=== PATIENT | female | born 1970 | race African-American/Black ===

== ENCOUNTER 2016-05-16 14:32 | Emergency (ER) | payer BC ==
[2016-05-16] MEDS ORDERED: ACETAMINOPHEN 325 MG TABLET PO ONE (14:40)
[2016-05-16] MEDS ORDERED: ONDANSETRON 4 MG TAB.RAPDIS PO ONE (14:40)
--- NOTE | 2016-05-16 14:40 | ER Document Report ---
ED Medical Screen (RME) - General Stated Complaint: VOMITING,FEVER Time seen by provider: 14:38 Mode of Arrival: Ambulatory Information source: Patient Notes: 45-year-old female presents to ED for vomiting and fever with some pressure when she urinates. States sometimes she has frequency with urination. She states she came in about a month ago with the same symptoms and had a UTI. Last menstrual period 04/25/2016 I have greeted and performed a rapid initial assessment of this patient. A comprehensive ED assessment and evaluation of the patient, analysis of test results and completion of medical decision making process will be conducted by an additional ED providers. TRAVEL OUTSIDE OF THE [place] IN LAST 30 DAYS: No - Related Data Allergies/Adverse Reactions: Sulfa (Sulfonamide Antibiotics) Allergy (Verified 03/24/16 09:58) apples Allergy (Severe, Uncoded 03/24/16 09:58) Anaphylaxis Past Medical History Endocrine Medical History: Reports: Hx Diabetes Mellitus Type 2 GI Medical History: Reports: Hx Ulcer Past Surgical History: Reports: Hx Section - Immunizations Hx Diphtheria, Pertussis, Tetanus Vaccination: No
[2016-05-16 15:22] LABS: ABSOLUTE LYMPHOCYTES (AUTO) 0.9 10^3/uL (0.5-4.7); ABSOLUTE MONOCYTES (AUTO) 0.3 10^3/uL (0.1-1.4); BASOPHILS % (AUTO) 0.1 % (0-2); HEMATOCRIT 41.1 % (36.0-47.0); HEMOGLOBIN 13.1 g/dL (12.0-15.5); HGB HCT DIFFERENCE -1.8; LYMPHOCYTES % (AUTO) 16.7 % (13-45); MEAN CORPUSCULAR HEMOGLOBIN 28.3 pg (27.0-33.4); MEAN CORPUSCULAR HGB CONC 31.9 g/dL (32.0-36.0); MEAN CORPUSCULAR VOLUME 89 fl (80-97); MONOCYTES % (AUTO) 5.6 % (3-13); RED BLOOD COUNT 4.63 10^6/uL (3.72-5.28); RED CELL DISTRIBUTION WIDTH 14.1 % (11.5-14.0); SEGMENTED NEUTROPHILS % (AUTO) 77.6 % (42-78); WHITE BLOOD COUNT 5.1 10^3/uL (4.0-10.5)
[2016-05-16] MEDS ORDERED: NORMAL SALINE 1000 ML 1,000 ML IV ONE ×3 (15:35→19:57)
[2016-05-16 15:51] LABS: APPEARANCE,URINE CLEAR; BILIRUBIN,URINE NEGATIVE (NEGATIVE); GLUCOSE, URINE >=500 mg/dL (NEGATIVE); KETONES,URINE 80 mg/dL (NEGATIVE); LEUKOCYTE ESTERASE,URINE NEGATIVE (NEGATIVE); NITRITE,URINE NEGATIVE (NEGATIVE); PROTEIN,URINE 100 mg/dL (NEGATIVE); URINE SPECIFIC GRAVITY 1.026; UROBILINOGEN,URINE NEGATIVE mg/dL (<2.0)
[2016-05-16 16:04] LABS: ALANINE AMINOTRANSFERASE 24 U/L (9-52); ALKALINE PHOSPHATASE 65 U/L (38-126); ASPARTATE AMINO TRANSFERASE 15 U/L (14-36); BILIRUBIN,TOTAL 1.1 mg/dL (0.2-1.3); BLOOD UREA NITROGEN 20 mg/dL (7-20); CALCIUM 10.7 mg/dL (8.4-10.2); CARBON DIOXIDE 16 mmol/L (22-30); CHLORIDE 103 mmol/L (98-107); CREATININE RESULT 0.72 mg/dL (0.52-1.25); GLUCOSE 139 mg/dL (75-110); LIPASE 38.6 U/L (23-300)
[2016-05-16 16:14] LABS: POTASSIUM 4.6 mmol/L (3.6-5.0); SODIUM 143.3 mmol/L (137-145)
[2016-05-16 16:15] LABS: ANION GAP 24 (5-19)
--- NOTE | 2016-05-16 16:44 | ER Document Report ---
ED General - General Mode of Arrival: Ambulatory Information source: Patient TRAVEL OUTSIDE OF THE [place] IN LAST 30 DAYS: No - HPI Onset: Yesterday Onset/Duration: Sudden Quality of pain: No pain Associated symptoms: Chills, Fever, Nausea, Vomiting, Weakness. denies: Chest pain, Diarrhea, Shortness of breath Exacerbated by: Denies Relieved by: Denies Similar symptoms previously: No Recently seen / treated by doctor: No <RENZO YATES - Last Filed: 05/16/16 19:57> <HEIDY GARCIA - Last Filed: 05/18/16 06:16> - General Chief Complaint: Fever Stated Complaint: VOMITING,FEVER - HPI Notes: Patient states she did not take her metformin today. (RENZO YATES) - Related Data Allergies/Adverse Reactions: Sulfa (Sulfonamide Antibiotics) Allergy (Verified 05/18/16 04:59) sulfamethoxazole [From Septra] Allergy (Verified 05/18/16 05:00) trimethoprim [From Septra] Allergy (Verified 05/18/16 05:00) Past Medical History - General Information source: Patient - Social History Smoking Status: Unknown if Ever Smoked Chew tobacco use (# tins/day): No Frequency of alcohol use: None Drug Abuse: None Lives with: Family Family History: Reviewed & Not Pertinent Patient has suicidal ideation: No Patient has homicidal ideation: No - Past Medical History Cardiac Medical History: Reports: None Pulmonary Medical History: Reports: None EENT Medical History: Reports: None Neurological Medical History: Reports: None Endocrine Medical History: Reports: Hx Diabetes Mellitus Type 2 Renal/ Medical History: Reports: None. Denies: Hx Peritoneal Dialysis Malignancy Medical History: Reports: None GI Medical History: Reports: Hx Ulcer Musculoskeltal Medical History: Reports None Psychiatric Medical History: Reports: None Past Surgical History: Reports: Hx Section - Immunizations Hx Diphtheria, Pertussis, Tetanus Vaccination: No <RENZO YATES - Last Filed: 05/16/16 19:57> Review of Systems - Review of Systems Constitutional: See HPI EENT: No symptoms reported Cardiovascular: No symptoms reported Respiratory: No symptoms reported Gastrointestinal: See HPI Genitourinary: See HPI, Urgency Female Genitourinary: No symptoms reported Musculoskeletal: No symptoms reported Skin: No symptoms reported Neurological/Psychological: No symptoms reported <RENZO YATES - Last Filed: 05/16/16 19:57> Physical Exam - Vital signs Interpretation: Tachycardic. No: Hypotensive, Tachypneic - General General appearance: Appears well, Alert In distress: None - HEENT Head: Normocephalic Eyes: Normal Conjunctiva: Normal Ears: Normal Nasal: Normal Mouth/Lips: Normal Mucous membranes: Dry Pharynx: Normal Neck: Normal, Supple - Respiratory Respiratory status: No respiratory distress Breath sounds: Normal - Cardiovascular Rhythm: Regular, Tachycardia Heart sounds: Normal auscultation Murmur: No - Abdominal Inspection: Normal Distension: No distension Bowel sounds: Hypoactive - Back Back: Normal - Extremities General upper extremity: Normal inspection General lower extremity: Normal inspection - Neurological Neuro grossly intact: Yes Cognition: Normal Orientation: AAOx4 - Psychological Associated symptoms: Normal affect, Normal mood - Skin Skin Temperature: Warm Skin Moisture: Dry Skin Color: Normal Skin Turgor: Elastic <CARLOTAROSINARENZO - Last Filed: 05/16/16 19:57> Course - Laboratory Result Diagrams: 05/16/16 14:58 05/16/16 14:58 <RENZO YATES - Last Filed: 05/16/16 19:57> - Laboratory Result Diagrams: 05/16/16 14:58 05/16/16 20:00 <HEIDY GARCIA - Last Filed: 05/18/16 06:16> - Re-evaluation Re-evalutation: 05/16/16 18:17 Patient reports she is feeling some better, has had some recurrent nausea, continues to be thirsty. Results of laboratory testing discussed. 05/16/16 19:58 Patient states she feels better but still having generalized weakness. Denies any pain. Denies nausea at present time. Still tachycardic, although somewhat improved. Will give a third liter of intravenous fluid and repeat labs. (RENZO YATES) - Vital Signs Vital signs: Temp Pulse Resp BP Pulse Ox 98.9 F 123 H 18 150/90 H 98 05/16/16 23:02 05/16/16 14:36 05/16/16 23:01 05/16/16 23:00 05/16/16 23:01 (RENZO YATES) (HEIDY GARCIA) - Laboratory Laboratory results interpreted by me: 05/16/16 05/16/16 05/16/16 14:58 14:58 14:58 MCHC 31.9 L RDW 14.1 H Chloride Carbon Dioxide 16 L Anion Gap 24 H Glucose 139 H Calcium 10.7 H Total Protein 9.0 H Urine Protein 100 H Urine Glucose (UA) >=500 H Urine Ketones 80 H 05/16/16 20:00 MCHC RDW Chloride 110 H Carbon Dioxide 15 L Anion Gap Glucose Calcium Total Protein Urine Protein Urine Glucose (UA) Urine Ketones (RENZO YATES) (HEIDY GARCIA) Discharge <RENZO YATES - Last Filed: 05/16/16 19:57> <HEIDY GARCIA - Last Filed: 05/18/16 06:16> - Discharge Clinical Impression: Dehydration Vomiting Qualifiers: Vomiting type: unspecified Vomiting Intractability: non-intractable Nausea presence: with nausea Qualified Code(s): R11.2 - Nausea with vomiting, unspecified Hyperglycemia due to type 2 diabetes mellitus Qualifiers: Diabetes mellitus halfway insulin use: without halfway use Qualified Code(s ): E11.65 - Type 2 diabetes mellitus with hyperglycemia Condition: Stable Disposition: HOME, SELF-CARE Instructions: Antinausea Medication ([facility]), Vomiting ([facility]), Viral Syndrome ([facility]) , Dehydration ([facility]), Intravenous (IV) Fluids ([facility]) Additional Instructions: CONTINUE YOUR USUAL MEDICATIONS. YOU MAY TAKE ZOFRAN FOR NAUSEA CONTROL IF NEEDED. CLEAR LIQUID DIET UNTIL APPETITE RETURNS, THEN GRADUALLY ADVANCE DIET. RETURN IF YOU GET WORSE, ANY TIME. Prescriptions: Ondansetron [Zofran Odt 4 mg Tablet] 1 - 2 tab PO Q4H #10 tab.[email or web address]
[2016-05-16] MEDS ORDERED: ONDANSETRON HCL INJ/PF 4 MG/2 ML SDV IV ONE (18:16)
[2016-05-16] MEDS ORDERED: FAMOTIDINE INJ/PF 20 MG/2 ML SDV IV ONE (18:17)
[2016-05-16 20:33] LABS: ANION GAP 17 (5-19); BLOOD UREA NITROGEN 19 mg/dL (7-20); CALCIUM 9.4 mg/dL (8.4-10.2); CARBON DIOXIDE 15 mmol/L (22-30); CHLORIDE 110 mmol/L (98-107); CREATININE RESULT 0.57 mg/dL (0.52-1.25); GLUCOSE 107 mg/dL (75-110); POTASSIUM 4.3 mmol/L (3.6-5.0)
[2016-05-16] MEDS ORDERED: PROMETHAZINE HCL INJ 25 MG/1 ML VIAL IV ONE (20:41)
[2016-05-16 23:02] VITALS: BP 150/90
== END 2016-05-16 23:10 | disposition home or self-care (01) ==
LOC: ER 14:32
DX: E86.0 Dehydration (principal); R11.2 Nausea with vomiting, unspecified; E11.65 Type 2 diabetes mellitus with hyperglycemia; R50.9 Fever, unspecified; R53.1 Weakness; R00.0 Tachycardia, unspecified; Z79.84 Long term (current) use of oral hypoglycemic drugs; Z88.2 Allergy status to sulfonamides; Z88.3 Allergy status to other anti-infective agents
CPT/HCPCS: 99284; 96361; 96374; 96375; 36415; 83690; 84443; 84703; 85025; 80048; 80053; 81001; 83605; S0119; J2550; J2405; J7030; S0028

== ENCOUNTER 2016-05-18 04:51 | Emergency (ER) | payer BC ==
[2016-05-18] MEDS ORDERED: FAMOTIDINE INJ/PF 20 MG/2 ML SDV IV ONE (05:35)
[2016-05-18] MEDS ORDERED: NORMAL SALINE 1000 ML 1,000 ML IV PRN (05:35)
[2016-05-18] MEDS ORDERED: ONDANSETRON HCL INJ/PF 4 MG/2 ML SDV IV ONE (05:35)
[2016-05-18] MEDS ORDERED: METOCLOPRAMIDE HCL INJ/PF 10 MG/2 ML SDV IV ONE ×2 (05:37→10:17)
--- NOTE | 2016-05-18 05:37 | ER Document Report ---
ED Medical Screen (RME) - General Chief Complaint: Nausea/Vomiting Stated Complaint: SHORT OF BREATH,ABDOMINAL PAIN Time seen by provider: 05:36 Mode of Arrival: Ambulatory Information source: Patient TRAVEL OUTSIDE OF THE [place] IN LAST 30 DAYS: No - HPI Patient complains to provider of: nausea and vomiting, shortness of breath, epigastric abdominal pain Onset: Other - Onset/Duration: Persistent Quality of pain: Achy, Cramping Severity: Mild Pain Level: 2 Associated Symptoms: Cough (nonproductive), Nausea, Shortness of breath, Vomiting Similar symptoms previously: Yes Recently seen / treated by doctor: Yes Notes: 05/18/16 05:36 Patient is a 45-year-old female who is a diabetic, presents to the emergency room for the second time in 4 days complaining of nausea, vomiting and epigastric abdominal pain, today she is also having some nonproductive cough with shortness of breath, has been using Zofran at home which is not helping her symptoms at all - Related Data Allergies/Adverse Reactions: Sulfa (Sulfonamide Antibiotics) Allergy (Verified 05/18/16 04:59) sulfamethoxazole [From Septra] Allergy (Verified 05/18/16 05:00) trimethoprim [From Septra] Allergy (Verified 05/18/16 05:00) Past Medical History Endocrine Medical History: Reports: Hx Diabetes Mellitus Type 2 Renal/ Medical History: Denies: Hx Peritoneal Dialysis GI Medical History: Reports: Hx Ulcer Past Surgical History: Reports: Hx Section - Immunizations Hx Diphtheria, Pertussis, Tetanus Vaccination: No
[2016-05-18 06:02] LABS: ABSOLUTE LYMPHOCYTES (AUTO) 1.3 10^3/uL (0.5-4.7); ABSOLUTE MONOCYTES (AUTO) 0.4 10^3/uL (0.1-1.4); ABSOLUTE NEUT (AUTO) 3.5 10^3/uL (1.7-8.2); BASOPHILS % (AUTO) 0.9 % (0-2); HEMATOCRIT 39.6 % (36.0-47.0); HEMOGLOBIN 12.7 g/dL (12.0-15.5); HGB HCT DIFFERENCE -1.5; LYMPHOCYTES % (AUTO) 24.4 % (13-45); MEAN CORPUSCULAR HEMOGLOBIN 28.2 pg (27.0-33.4); MEAN CORPUSCULAR HGB CONC 32.1 g/dL (32.0-36.0); MEAN CORPUSCULAR VOLUME 88 fl (80-97); MONOCYTES % (AUTO) 7.9 % (3-13); RED BLOOD COUNT 4.51 10^6/uL (3.72-5.28); RED CELL DISTRIBUTION WIDTH 13.8 % (11.5-14.0); SEGMENTED NEUTROPHILS % (AUTO) 66.8 % (42-78); WHITE BLOOD COUNT 5.2 10^3/uL (4.0-10.5)
[2016-05-18 06:07] LABS: ALANINE AMINOTRANSFERASE 23 U/L (9-52); ALBUMIN 4.6 g/dL (3.5-5.0); ALKALINE PHOSPHATASE 59 U/L (38-126); ANION GAP 14 (5-19); ASPARTATE AMINO TRANSFERASE 33 U/L (14-36); BILIRUBIN,TOTAL 1.5 mg/dL (0.2-1.3); BLOOD UREA NITROGEN 16 mg/dL (7-20); CALCIUM 9.4 mg/dL (8.4-10.2); CARBON DIOXIDE 21 mmol/L (22-30); CHLORIDE 106 mmol/L (98-107); CREATININE RESULT 0.55 mg/dL (0.52-1.25); GLUCOSE 87 mg/dL (75-110); LIPASE 58.2 U/L (23-300); POTASSIUM 3.8 mmol/L (3.6-5.0); SODIUM 141.3 mmol/L (137-145)
[2016-05-18 06:21] LABS: AMORPHOUS SEDIMENT,URINE TRACE /HPF; APPEARANCE,URINE CLEAR; BILIRUBIN,URINE NEGATIVE (NEGATIVE); GLUCOSE, URINE >=500 mg/dL (NEGATIVE); KETONES,URINE 80 mg/dL (NEGATIVE); LEUKOCYTE ESTERASE,URINE NEGATIVE (NEGATIVE); NITRITE,URINE NEGATIVE (NEGATIVE); PROTEIN,URINE 30 mg/dL (NEGATIVE); URINE SPECIFIC GRAVITY 1.027; UROBILINOGEN,URINE NEGATIVE mg/dL (<2.0)
[2016-05-18] MEDS ORDERED: DEXTROSE 5%-LACTATED RINGERS 1,000 ML IV ONE ×2 (06:39→10:17)
[2016-05-18] MEDS ORDERED: MAG HYDROX/AL HYDROX/SIMETH SUSP 30 ML UDCUP PO ONE ×2 (06:40→10:17)
[2016-05-18] MEDS ORDERED: LIDOCAINE 2% VISCOUS SOLN 20 ML UDCUP PO ONE ×2 (06:40→10:17)
--- NOTE | 2016-05-18 07:12 | ER Document Report ---
ED GI/ - General Time seen by provider: 06:30 Mode of Arrival: Ambulatory Information source: Patient TRAVEL OUTSIDE OF THE [place] IN LAST 30 DAYS: No - HPI Patient complains to provider of: Abdominal pain, Vomiting Onset: Other - see HPI Timing/Duration: Persistent Quality of pain: Cramping Pain Level: 3 Location: Epigastric. No: RUQ Associated symptoms: Nausea, Vomiting Similar symptoms previously: Yes Recently seen / treated by doctor: Yes - ED on 05/16 <MY ROBLES - Last Filed: 05/18/16 07:21> <HEIDY GRACIA - Last Filed: 05/18/16 14:40> - General Chief Complaint: Nausea/Vomiting Stated Complaint: SHORT OF BREATH,ABDOMINAL PAIN Notes: Patient is a 45-year-old female with a history of type II diabetes mellitus presents the emergency department with complaints of nausea, vomiting, and some shortness of breath. Patient was seen in the emergency department on 05/16 for nausea and vomiting and some epigastric pain. Patient was given 3 L of fluids and sent home with Zofran. Patient states she has been taking Zofran without much relief. Patient states she now is having some shortness of breath with her nausea and vomiting as well as a slight nonproductive cough. Patient denies any fever. Patient's PCP is [facility]. (MY ROBLES) - Related Data Allergies/Adverse Reactions: Sulfa (Sulfonamide Antibiotics) Allergy (Verified 05/18/16 04:59) sulfamethoxazole [From Septra] Allergy (Verified 05/18/16 05:00) trimethoprim [From Decra] Allergy (Verified 05/18/16 05:00) Home Medications: Current Home Medications Canagliflozin [Invokana] 1 tab PO DAILY 05/18/16 [History] Lisinopril [Prinivil 5 mg Tablet] 5 mg PO DAILY 05/18/16 [History] Metformin HCl [Glucophage 500 mg Tablet] 1,000 mg PO BID 05/18/16 [History] Past Medical History - General Information source: Patient - Social History Smoking Status: Never Smoker Cigarette use (# per day): No Chew tobacco use (# tins/day): No Frequency of alcohol use: None Drug Abuse: None Family History: None Endocrine Medical History: Reports: Hx Diabetes Mellitus Type 2 GI Medical History: Reports: Hx Ulcer Past Surgical History: Reports: Hx Section - Immunizations Hx Diphtheria, Pertussis, Tetanus Vaccination: No <MY ROBLES - Last Filed: 05/18/16 07:21> Review of Systems - Review of Systems Constitutional: No symptoms reported EENT: No symptoms reported Cardiovascular: No symptoms reported Respiratory: No symptoms reported Gastrointestinal: See HPI, Abdominal pain, Nausea, Vomiting Genitourinary: No symptoms reported Female Genitourinary: No symptoms reported Musculoskeletal: No symptoms reported Skin: No symptoms reported Hematologic/Lymphatic: No symptoms reported Neurological/Psychological: No symptoms reported -: Yes All other systems reviewed and negative <MY ROBLES - Last Filed: 05/18/16 07:21> Physical Exam - Vital signs Interpretation: Normal, Tachycardic - General General appearance: Appears well, Alert In distress: Mild - HEENT Head: Normocephalic, Atraumatic Eyes: Normal Pupils: PERRL Mouth/Lips: Other - strong keytone odor on breath Mucous membranes: Normal - Respiratory Respiratory status: No respiratory distress Chest status: Nontender Breath sounds: Normal Chest palpation: Normal - Cardiovascular Rhythm: Regular, Tachycardia Heart sounds: Normal auscultation Murmur: No - Abdominal Inspection: Obese Distension: No distension Bowel sounds: Normal Tenderness: Tender - Epigastric tenderness to palpation, no RUQ tenderness to palpation. Organomegaly: No organomegaly - Back Back: Normal, Nontender - Extremities General upper extremity: Normal inspection, Normal ROM, Normal strength General lower extremity: Normal inspection, Normal ROM, Normal strength - Neurological Neuro grossly intact: Yes Cognition: Normal Orientation: AAOx4 Max Coma Scale Eye Opening: Spontaneous [place] Coma Scale Verbal: Oriented Max Coma Scale Motor: Obeys Commands [place] Coma Scale Total: 15 Speech: Normal - Psychological Associated symptoms: Normal affect, Normal mood - Skin Skin Temperature: Warm Skin Moisture: Dry <MY ROBLES - Last Filed: 05/18/16 07:21> <HEIDY GARCIA - Last Filed: 05/18/16 14:40> - Vital signs Vitals: Temp Pulse Resp BP Pulse Ox 97.5 F 113 H 14 134/92 H 100 05/18/16 05:25 05/18/16 05:25 05/18/16 05:25 05/18/16 05:25 05/18/16 05:25 (MY ROBLES) (HEIDY GARCIA) Course - Laboratory Result Diagrams: 05/18/16 05:29 05/18/16 05:29 <MY ROBLES - Last Filed: 05/18/16 07:21> - Laboratory Result Diagrams: 05/18/16 05:29 05/18/16 12:05 <HEIDY GARCIA - Last Filed: 05/18/16 14:40> - Re-evaluation Re-evalutation: 05/18/16 10:16 The patient is finishing her third liter of IV fluids. There is still strong ketone odor to the breath. She has not urinated since the initial specimen was obtained much earlier today. The epigastric discomfort is beginning to come back since the GI cocktail has worn off. She reports the Reglan she received today for nausea seemed to work much better than the Zofran she was taking. There may be a component of diabetic gastroparesis as part of this nausea and vomiting. She reports she has not been eating at all in the last several days due to the nausea and throwing up. (HEIDY GARCIA) - Vital Signs Vital signs: Temp Pulse Resp BP Pulse Ox 98.1 F 98 16 146/84 H 98 05/18/16 12:22 05/18/16 12:22 05/18/16 12:22 05/18/16 12:22 05/18/16 12:22 (MY ROBLES) (HEIDY GARCIA) - Laboratory Laboratory results interpreted by me: 05/18/16 05/18/16 05/18/16 05:29 05:35 12:05 Carbon Dioxide 21 L Glucose 183 H Total Bilirubin 1.5 H Urine Protein 30 H Urine Glucose (UA) >=500 H Urine Ketones 80 H Urine Blood MODERATE H (MY ROBLES) (HEIDY GARCIA) Discharge <MY ROBLES - Last Filed: 05/18/16 07:21> <HEIDY GARCIA - Last Filed: 05/18/16 14:40> - Discharge Clinical Impression: Esophagitis, Ketosis Nausea and vomiting Qualifiers: Vomiting type: unspecified Vomiting Intractability: non-intractable Qualified Code(s): R11.2 - Nausea with vomiting, unspecified Condition: Stable Disposition: HOME, SELF-CARE Additional Instructions: Vomiting: Vomiting (or nausea without vomiting) can be caused by many other different problems. It can mean that something's wrong with the stomach, such as ulcers or inflammation or the intestinal tract, such as appendicitis. But it can also be a symptom of a problem that has nothing to do with the stomach or intestines. Vomiting is common with severe headaches, earaches, tonsillitis, and kidney infections, etc. We see it with pneumonia or heart attacks. Drugs can cause nausea and vomiting. Many abdominal problems cause vomiting; for example, gallstones, kidney stones, pancreatitis, and intestinal obstruction ( blocked bowels). In most cases, curing the vomiting depends on fixing the problem that caused it. For temporary relief, we may use an anti-nausea medicine. For home use, we can prescribe suppositories, chewable pills, pills that dissolve in the mouth, or liquid anti-nausea drugs. If the vomiting seems to be caused by a problem in the stomach, acid-suppressing drugs may be prescribed as well. It's important to avoid dehydration. Sip small amounts of clear liquids ( soft drinks, tea, broth, etc) . Try to take fluids frequently even if you are vomiting to prevent dehydration. Take increasing amounts of fluid and when liquids are being consumed successfully, advance to small amounts of bland food (toast, soups, mashed potatoes, etc.) until you are able to resume a regular diet. Avoid aspirin, tobacco, and alcohol. If the vomiting worsens, if the problem that's making you vomit worsens, or if there's evidence of bleeding in the stomach (such as black, tarry stool, or bloody or black vomit), you should return immediately. Also, return if abdominal pain worsens or becomes localized to one area or you develop high fever. Call your doctor if you aren't improved in 24 hours. ADD THE MEDICATION PRESCRIBED FOR NAUSEA. DRINK SMALL SIPS OF COOL CLEAR LIQUIDS THROUGHOUT THE DAY AND EVENING TODAY. FOLLOW UP WITH YOUR DOCTOR TOMORROW IF NOT IMPROVING. RETURN TO THE EMERGENCY ROOM IF ANY NEW OR WORSENING SYMPTOMS. Prescriptions: Metoclopramide HCl [Reglan 10 mg Tablet] 10 mg PO ASDIR PRN #20 tablet PRN Reason: Forms: Return to Work Scribe Attestation: 05/18/16 14:40 I personally performed the services described in the documentation, reviewed and edited the documentation which was dictated to the scribe in my presence, and it accurately records my words and actions. (HEIDY GARCIA) Scribe Documentation - Scribe Written by Scrclaire:: My Robles 05/18/16 07:20 acting as scribe for :: Russ <MY ROBLES - Last Filed: 05/18/16 07:21>
[2016-05-18] MEDS ORDERED: METFORMIN HCL 500 MG TABLET PO ONE (08:03)
[2016-05-18] MEDS ORDERED: NORMAL SALINE 1000 ML 1,000 ML IV ONE (09:12)
[2016-05-18 12:39] LABS: ANION GAP 11 (5-19); BLOOD UREA NITROGEN 12 mg/dL (7-20); CALCIUM 8.9 mg/dL (8.4-10.2); CARBON DIOXIDE 25 mmol/L (22-30); CHLORIDE 104 mmol/L (98-107); CREATININE RESULT 0.53 mg/dL (0.52-1.25); GLUCOSE 183 mg/dL (75-110); POTASSIUM 3.6 mmol/L (3.6-5.0); SODIUM 139.7 mmol/L (137-145)
[2016-05-18 14:59] VITALS: BP 145/92
== END 2016-05-18 14:48 | disposition home or self-care (01) ==
LOC: ER 04:51
DX: K20.9 Esophagitis, unspecified (principal); R10.13 Epigastric pain; R11.2 Nausea with vomiting, unspecified; E88.89 Other specified metabolic disorders; R06.02 Shortness of breath; E11.9 Type 2 diabetes mellitus without complications; R05 Cough; Z88.2 Allergy status to sulfonamides; Z88.1 Allergy status to other antibiotic agents
CPT/HCPCS: 96376; 99284; 96361; 96375; 96365; 96366; 36415; 82962; 83690; 85025; 80048; 80053; 81001; J3490; J2765; J7030; S0028

== ENCOUNTER 2016-07-11 11:25 | Emergency (ER) | payer BC ==
--- NOTE | 2016-07-11 11:56 | ER Document Report ---
ED Medical Screen (RME) - General Stated Complaint: NAUSEA,VOMITING Notes: Patient complains of nausea or vomiting since Thursday evening. States she feels dehydrated and weak. No known fever. Patient states she was treated for UTI last week. Symptoms resolved, but the patient states she is feeling pain in the pelvic area again. Patient is diabetic. She states BS has been in the normal range. I have greeted and performed a rapid initial assessment of this patient. A comprehensive ED assessment and evaluation of the patient, analysis of test results and completion of the medical decision making process will be conducted by additional ED providers. TRAVEL OUTSIDE OF THE [place] IN LAST 30 DAYS: No - Related Data Allergies/Adverse Reactions: Sulfa (Sulfonamide Antibiotics) Allergy (Verified 07/11/16 11:54) sulfamethoxazole [From Decra] Allergy (Verified 07/11/16 11:54) trimethoprim [From ] Allergy (Verified 07/11/16 11:54) Past Medical History Endocrine Medical History: Reports: Hx Diabetes Mellitus Type 2 Renal/ Medical History: Denies: Hx Peritoneal Dialysis GI Medical History: Reports: Hx Ulcer Past Surgical History: Reports: Hx Section - Immunizations Hx Diphtheria, Pertussis, Tetanus Vaccination: No Physical Exam - Vital signs Vitals: Temp Pulse Resp BP Pulse Ox 98.2 F 121 H 18 144/92 H 98 07/11/16 11:49 07/11/16 11:49 07/11/16 11:49 07/11/16 11:49 07/11/16 11:49 - Cardiovascular Rhythm: Tachycardia Heart sounds: Normal auscultation Course - Vital Signs Vital signs: Temp Pulse Resp BP Pulse Ox 98.2 F 121 H 18 144/92 H 98 07/11/16 11:49 07/11/16 11:49 07/11/16 11:49 07/11/16 11:49 07/11/16 11:49
[2016-07-11 12:52] LABS: ABSOLUTE LYMPHOCYTES (AUTO) 1.1 10^3/uL (0.5-4.7); ABSOLUTE MONOCYTES (AUTO) 0.5 10^3/uL (0.1-1.4); ABSOLUTE NEUT (AUTO) 7.6 10^3/uL (1.7-8.2); BASOPHILS % (AUTO) 0.1 % (0-2); HEMATOCRIT 39.1 % (36.0-47.0); HEMOGLOBIN 12.7 g/dL (12.0-15.5); LYMPHOCYTES % (AUTO) 11.7 % (13-45); MEAN CORPUSCULAR HGB CONC 32.6 g/dL (32.0-36.0); MEAN CORPUSCULAR VOLUME 86 fl (80-97); MONOCYTES % (AUTO) 5.4 % (3-13); RED BLOOD COUNT 4.55 10^6/uL (3.72-5.28); RED CELL DISTRIBUTION WIDTH 14.4 % (11.5-14.0); SEGMENTED NEUTROPHILS % (AUTO) 82.8 % (42-78); WHITE BLOOD COUNT 9.2 10^3/uL (4.0-10.5)
[2016-07-11 12:57] LABS: APPEARANCE,URINE CLOUDY; BILIRUBIN,URINE NEGATIVE (NEGATIVE); GLUCOSE, URINE >=500 mg/dL (NEGATIVE); KETONES,URINE 80 mg/dL (NEGATIVE); LEUKOCYTE ESTERASE,URINE MODERATE (NEGATIVE); NITRITE,URINE NEGATIVE (NEGATIVE); PROTEIN,URINE >=500 mg/dL (NEGATIVE); URINE SPECIFIC GRAVITY 1.026; UROBILINOGEN,URINE NEGATIVE mg/dL (<2.0)
[2016-07-11 13:09] LABS: ALANINE AMINOTRANSFERASE 26 U/L (9-52); ALBUMIN 5.2 g/dL (3.5-5.0); ALKALINE PHOSPHATASE 74 U/L (38-126); ASPARTATE AMINO TRANSFERASE 14 U/L (14-36); BILIRUBIN,DIRECT 0.3 mg/dL (0.0-0.4); BILIRUBIN,TOTAL 0.8 mg/dL (0.2-1.3); BLOOD UREA NITROGEN 20 mg/dL (7-20); CARBON DIOXIDE 21 mmol/L (22-30); CHLORIDE 101 mmol/L (98-107); CREATININE RESULT 0.67 mg/dL (0.52-1.25); GLUCOSE 171 mg/dL (75-110); LIPASE 31.9 U/L (23-300); POTASSIUM 4.5 mmol/L (3.6-5.0); SODIUM 144.9 mmol/L (137-145); TOTAL PROTEIN 8.6 g/dL (6.3-8.2)
[2016-07-11 13:26] LABS: ANION GAP 23 (5-19)
[2016-07-11] MEDS ORDERED: ONDANSETRON HCL INJ/PF 4 MG/2 ML SDV IV ONE (15:58)
[2016-07-11] MEDS ORDERED: NORMAL SALINE 1000 ML 1,000 ML IV PRN (15:58)
[2016-07-11] MEDS ORDERED: CIPROFLOXACIN 400 MG/D5W RTU 200 ML IV SCH (16:00)
--- NOTE | 2016-07-11 16:03 | ER Document Report ---
ED General - General Chief Complaint: Nausea/Vomiting Stated Complaint: NAUSEA,VOMITING Mode of Arrival: Ambulatory Information source: Patient Notes: 45-year-old female who was recently diagnosed with a urinary tract infection presents with complaints of 2 day duration nausea and vomiting. Patient denies any fevers or chills. Patient denies any urinary complaints. Patient was on Macrobid but has not held on medications over the past 2 days TRAVEL OUTSIDE OF THE [place] IN LAST 30 DAYS: No - HPI Onset: Other - 2 day duration Onset/Duration: Persistent Quality of pain: No pain Severity: Mild Pain Level: Denies Associated symptoms: Nausea, Vomiting Exacerbated by: Denies Relieved by: Denies Similar symptoms previously: Yes Recently seen / treated by doctor: Yes - Related Data Allergies/Adverse Reactions: Sulfa (Sulfonamide Antibiotics) Allergy (Verified 07/11/16 11:54) sulfamethoxazole [From Septra] Allergy (Verified 07/11/16 11:54) trimethoprim [From Decra] Allergy (Verified 07/11/16 11:54) Past Medical History - Social History Smoking Status: Never Smoker Cigarette use (# per day): No Chew tobacco use (# tins/day): No Smoking Education Provided: No Frequency of alcohol use: None Drug Abuse: None Family History: None Endocrine Medical History: Reports: Hx Diabetes Mellitus Type 2 Renal/ Medical History: Denies: Hx Peritoneal Dialysis GI Medical History: Reports: Hx Ulcer Past Surgical History: Reports: Hx Section - Immunizations Hx Diphtheria, Pertussis, Tetanus Vaccination: No Review of Systems - Review of Systems Notes: REVIEW OF SYSTEMS: CONSTITUTIONAL : Denies fever, chills, or sweats. Denies recent illness. EENT: Denies eye, ear, throat, or mouth pain or symptoms. Denies nasal or sinus congestion or discharge. Denies throat, tongue, or mouth swelling or difficulty swallowing. CARDIOVASCULAR: Denies chest pain. Denies palpitations or racing or irregular heart beat. Denies ankle edema. RESPIRATORY: Denies cough, cold, or chest congestion. Denies shortness of breath, difficulty breathing, or wheezing. GASTROINTESTINAL: Admits nausea vomiting GENITOURINARY: Denies difficulty urinating, painful urination, burning, frequency, blood in urine, or discharge. FEMALE GENITOURINARY: Denies vaginal bleeding, heavy or abnormal periods, irregular periods. Denies vaginal discharge or odor. MUSCULOSKELETAL: Denies back or neck pain or stiffness. Denies joint pain or swelling. SKIN: Denies rash, lesions or sores. HEMATOLOGIC : Denies easy bruising or bleeding. LYMPHATIC: Denies swollen, enlarged glands. NEUROLOGICAL: Denies confusion or altered mental status. Denies passing out or loss of consciousness. Denies dizziness or lightheadedness. Denies headache. Denies weakness or paralysis or loss of use of either side. Denies problems with gait or speech. Denies sensory loss, numbness, or tingling. Denies seizures. PSYCHIATRIC: Denies anxiety or stress. Denies depression, suicidal ideation, or homicidal ideation. ALL OTHER SYSTEMS REVIEWED AND NEGATIVE. Dictation was performed using [employer] voice recognition software PHYSICAL EXAMINATION: GENERAL: Well-appearing, well-nourished and in no acute distress. HEAD: Atraumatic, normocephalic. EYES: Pupils equal round and reactive to light, extraocular movements intact, conjunctiva are normal. ENT: Nares patent, oropharynx clear without exudates. Moist mucous membranes. NECK: Normal range of motion, supple without lymphadenopathy LUNGS: Breath sounds clear to auscultation bilaterally and equal. No wheezes rales or rhonchi. HEART: Tachycardic ABDOMEN: Soft, nontender, nondistended abdomen. No guarding, no rebound. No masses appreciated. Female : deferred Musculoskeletal: Normal range of motion, no pitting or edema. No cyanosis. NEUROLOGICAL: Cranial nerves grossly intact. Normal speech, normal gait. Normal sensory, motor exams PSYCH: Normal mood, normal affect. SKIN: Warm, Dry, normal turgor, no rashes or lesions noted. Physical Exam - Vital signs Vitals: Temp Pulse Resp BP Pulse Ox 98.2 F 121 H 18 144/92 H 98 07/11/16 11:49 07/11/16 11:49 07/11/16 11:49 07/11/16 11:49 07/11/16 11:49 Course - Re-evaluation Re-evalutation: 07/11/16 16:02 Patient is noted to have urinary tract infection, with ketones in her urine. Patient otherwise stable appearing. She is mildly tachycardic and given the ketones I will hydrate her with IV fluids and start her on IV antibiotics. I expect discharge once her nausea is controlled 07/11/16 17:34 Patient noted to be nauseated still given Reglan still tachycardic 07/11/16 18:33 After multiple evaluations patient now admits that she is always tachycardic in the 120s, she states that this has always been an issue and she is had multiple evaluations for this in the past. As such I will therefore discharge the patient with understanding that she return immediately if there is any other concerns Patient notes she feels much better wishes to go home After performing a Medical Screening Examination, I estimate there is LOW risk for ACUTE APPENDICITIS, BOWEL OBSTRUCTION, ACUTE CHOLECYSTITIS, PERFORATED DIVERTICULITIS, INCARCERATED HERNIA, PANCREATITIS, PELVIC INFLAMMATORY DISEASE, PERFORATED ULCER, ECTOPIC , or TUBO-OVARIAN ABSCESS, thus I consider the discharge disposition reasonable. Also, there is no evidence or peritonitis , sepsis, or toxicity. The patient and I have discussed the diagnosis and risks , and we agree with discharging home with close follow-up with the understanding that symptoms and presentations can change. We also discussed returning to the Emergency Department immediately if new or worsening symptoms occur. We have discussed the symptoms which are most concerning (e.g., bloody stool, fever, changing or worsening pain, vomiting) that necessitate immediate return. 07/11/16 18:35 - Vital Signs Vital signs: Temp Pulse Resp BP Pulse Ox 98.2 F 121 H 19 142/100 H 98 07/11/16 11:49 07/11/16 11:49 07/11/16 15:39 07/11/16 15:38 07/11/16 11:49 - Laboratory Result Diagrams: 07/11/16 12:15 07/11/16 12:15 Laboratory results interpreted by me: 07/11/16 07/11/16 07/11/16 12:15 12:15 12:15 RDW 14.4 H Seg Neutrophils % 82.8 H Lymphocytes % 11.7 L Carbon Dioxide 21 L Anion Gap 23 H Glucose 171 H Calcium 11.0 H Total Protein 8.6 H Albumin 5.2 H Urine Protein >=500 H Urine Glucose (UA) >=500 H Urine Ketones 80 H Urine Blood SMALL H Ur Leukocyte Esterase MODERATE H Discharge - Discharge Clinical Impression: Sinus tachycardia Nausea & vomiting Qualifiers: Vomiting type: unspecified Vomiting Intractability: non-intractable Qualified Code(s): R11.2 - Nausea with vomiting, unspecified UTI (urinary tract infection) Qualifiers: Urinary tract infection type: acute cystitis Hematuria presence: with hematuria Qualified Code(s): N30.01 - Acute cystitis with hematuria Condition: Stable Disposition: HOME, SELF-CARE Instructions: Sinus Tachycardia ([facility]), Urinary Tract Infection ([facility]) Prescriptions: Ondansetron [Zofran Odt 4 mg Tablet] 1 - 2 tab PO Q4H PRN #15 tab.rapdis PRN Reason: For Nausea/Vomiting Promethazine HCl 50 mg RC Q6 #20 supp.rect Referrals: NAZANIN ZMAORA PA-C [Primary Care Provider] - Follow up tomorrow
[2016-07-11] MEDS ORDERED: METOCLOPRAMIDE HCL INJ/PF 10 MG/2 ML SDV IV ONE (17:24)
[2016-07-11] MEDS ORDERED: DIPHENHYDRAMINE HCL 50 MG/ML VIAL IV ONE (19:08)
[2016-07-11 19:19] VITALS: BP 139/92
== END 2016-07-11 19:31 | disposition home or self-care (01) ==
LOC: ER 11:25
DX: R00.0 Tachycardia, unspecified (principal); R11.2 Nausea with vomiting, unspecified; N30.01 Acute cystitis with hematuria; E11.9 Type 2 diabetes mellitus without complications; Z88.2 Allergy status to sulfonamides; Z88.3 Allergy status to other anti-infective agents
CPT/HCPCS: 99284; 96361; 96375; 96365; 36415; 87040; 84702; 83690; 85025; 87077; 80053; 81001; J1200; J2765; J2405; J7030; J0744

== ENCOUNTER 2016-07-13 06:55 | Emergency (ER) | payer BC ==
[2016-07-13] MEDS ORDERED: ONDANSETRON HCL INJ/PF 4 MG/2 ML SDV IV ONE (08:41)
[2016-07-13] MEDS ORDERED: NORMAL SALINE 1000 ML 1,000 ML IV ONE (08:41)
--- NOTE | 2016-07-13 08:42 | ER Document Report ---
ED GI/ - General Chief Complaint: Nausea/Vomiting Stated Complaint: NO APPETITE Mode of Arrival: Ambulatory Information source: Patient Notes: Patient presents reporting recent treatment for UTI with Macrobid. Patient states she was diagnosed with UTI 9 days ago and is still on her antibiotic. Patient reports that she has had nausea off and on over the past week. Patient states that she was here 2 days ago and was seen for her nausea symptoms. Patient reports that she was given 2 prescriptions but has not gotten his medications filled as she had some leftover Zofran at home. Patient having mild fever 2 days ago but none since then. Patient reports vomiting 4 days ago but none since then. Patient denies any abdominal pain or back pain. Patient does take farxiga for her diabetes and states she's had frequent UTIs since starting this medication. Patient denies any pain anywhere. Patient reports decrease in appetite and nausea which prompted her visit today. TRAVEL OUTSIDE OF THE [place] IN LAST 30 DAYS: No - HPI Patient complains to provider of: Other - Nausea, decreased appetite. No: Abdominal pain, Hematuria, Vaginal discharge, Vomiting Onset: Last week Timing/Duration: Persistent Quality of pain: No pain Pain Level: Denies Vaginal bleeding (Compared to normal period): None Associated symptoms: Loss of appetite, Nausea. denies: Chest pain, Diarrhea, Dysuria, Fever, Urinary hesitancy, Urinary frequency, Urinary retention, Urinary urgency, Vomiting Exacerbated by: Denies Relieved by: Denies Similar symptoms previously: Yes Recently seen / treated by doctor: Yes - Related Data Allergies/Adverse Reactions: Sulfa (Sulfonamide Antibiotics) Allergy (Verified 07/11/16 11:54) sulfamethoxazole [From Septra] Allergy (Verified 07/11/16 11:54) trimethoprim [From Septra] Allergy (Verified 07/11/16 11:54) Past Medical History - General Information source: Patient - Social History Smoking Status: Never Smoker Chew tobacco use (# tins/day): No Frequency of alcohol use: None Drug Abuse: None Occupation: administrative staff Family History: None Patient has suicidal ideation: No Patient has homicidal ideation: No Endocrine Medical History: Reports: Hx Diabetes Mellitus Type 2 Renal/ Medical History: Denies: Hx Peritoneal Dialysis GI Medical History: Reports: Hx Ulcer Past Surgical History: Reports: Hx Section - Immunizations Hx Diphtheria, Pertussis, Tetanus Vaccination: No Review of Systems - Review of Systems Constitutional: Recent illness - Recently treated for UTI. denies: Fever EENT: No symptoms reported Cardiovascular: No symptoms reported. denies: Chest pain, Dyspnea, Dizziness Respiratory: No symptoms reported. denies: Cough, Short of breath Gastrointestinal: Nausea, Poor appetite. denies: Abdominal pain, Diarrhea, Vomiting Genitourinary: Burning - Mild burning at the end of her urinary stream. denies : Dysuria, Frequency, Flank pain, Hematuria, Retention Female Genitourinary: No symptoms reported. denies: Vaginal discharge, Vaginal bleeding Musculoskeletal: No symptoms reported. denies: Back pain Skin: No symptoms reported Hematologic/Lymphatic: No symptoms reported Neurological/Psychological: No symptoms reported Physical Exam - Vital signs Vitals: Temp Pulse Resp BP Pulse Ox 98 F 95 18 142/91 H 100 07/13/16 07:04 07/13/16 07:04 07/13/16 07:04 07/13/16 07:04 07/13/16 07:04 - General General appearance: Appears well, Alert In distress: None - HEENT Head: Normocephalic, Atraumatic Eyes: Normal Conjunctiva: Normal Nasal: Normal Mouth/Lips: Normal Mucous membranes: Normal Neck: Normal, Supple. No: Lymphadenopathy - Respiratory Respiratory status: No respiratory distress Chest status: Nontender Breath sounds: Normal. No: Rales, Rhonchi, Stridor, Wheezing Chest palpation: Normal - Cardiovascular Rhythm: Regular Heart sounds: S1 appreciated, S2 appreciated - Abdominal Inspection: Normal Distension: No distension Bowel sounds: Normal Tenderness: Nontender Organomegaly: No organomegaly - Back Back: Normal, Nontender. No: CVA tenderness - Extremities General upper extremity: Normal inspection, Normal strength General lower extremity: Normal inspection, Normal strength - Neurological Neuro grossly intact: Yes Cognition: Normal Max Coma Scale Eye Opening: Spontaneous [place] Coma Scale Verbal: Oriented [place] Coma Scale Motor: Obeys Commands Max Coma Scale Total: 15 - Psychological Associated symptoms: Normal affect, Normal mood - Skin Skin Temperature: Warm Skin Moisture: Dry Skin Color: Normal Course - Re-evaluation Re-evalutation: 07/13/16 10:[address] hodges regarding patient presentation and patient's previous positive blood culture. Recommends treating her UTI with something besides Macrobid such as Keflex. Patient's abdomen soft, nontender. Patient without any flank pain. Discussed planning care with patient. Patient verbalized understanding and agrees with plan of care. Patient advised that blood cultures and urine cultures are pending and that we will call her if she needs any different treatment. Good return precautions given to patient. - Vital Signs Vital signs: Temp Pulse Resp BP Pulse Ox 99.1 F 98 18 143/95 H 97 07/13/16 11:27 07/13/16 11:27 07/13/16 11:27 07/13/16 11:27 07/13/16 11:27 - Laboratory Result Diagrams: 07/13/16 09:15 07/13/16 09:15 Laboratory results interpreted by me: 07/13/16 07/13/16 09:15 09:15 Glucose 122 H Urine Protein 100 H Urine Glucose (UA) >=500 H Urine Ketones 80 H Urine Blood MODERATE H Ur Leukocyte Esterase MODERATE H Labs- Entire Visit 07/13/16 07/13/16 07/13/16 09:15 09:15 09:15 WBC 5.2 RBC 4.79 Hgb 13.2 Hct 40.7 MCV 85 MCH 27.5 MCHC 32.4 RDW 13.8 Plt Count 413 Seg Neutrophils % 67.3 Lymphocytes % 22.4 Monocytes % 9.9 Eosinophils % 0.0 Basophils % 0.4 Absolute Neutrophils 3.5 Absolute Lymphocytes 1.2 Absolute Monocytes 0.5 Absolute Eosinophils 0.0 Absolute Basophils 0.0 Sodium 141.2 Potassium 3.9 Chloride 100 Carbon Dioxide 26 Anion Gap 15 BUN 14 Creatinine 0.58 Est GFR ( Amer) > 60 Est GFR (Non-Af Amer) > 60 Glucose 122 H Lactic Acid 0.9 Calcium 9.9 Total Bilirubin 1.1 Direct Bilirubin 0.3 Indirect Bilirubin Not Reportable Neonat Total Bilirubin Not Reportable AST 14 ALT 21 Alkaline Phosphatase 63 Total Protein 7.7 Albumin 4.5 Urine Color Urine Appearance Urine pH Ur Specific [place] Urine Protein Urine Glucose (UA) Urine Ketones Urine Blood Urine Nitrite Urine Bilirubin Urine Urobilinogen Ur Leukocyte Esterase Urine WBC (Auto) Urine RBC (Auto) Urine Bacteria (Auto) Squamous Epi Cells Auto Urine Mucus (Auto) Urine Ascorbic Acid 07/13/16 09:15 WBC RBC Hgb Hct MCV MCH MCHC RDW Plt Count Seg Neutrophils % Lymphocytes % Monocytes % Eosinophils % Basophils % Absolute Neutrophils Absolute Lymphocytes Absolute Monocytes Absolute Eosinophils Absolute Basophils Sodium Potassium Chloride Carbon Dioxide Anion Gap BUN Creatinine Est GFR ( Amer) Est GFR (Non-Af Amer) Glucose Lactic Acid Calcium Total Bilirubin Direct Bilirubin Indirect Bilirubin Neonat Total Bilirubin AST ALT Alkaline Phosphatase Total Protein Albumin Urine Color YELLOW Urine Appearance SLIGHTLY-CLOUDY Urine pH 6.0 Ur Specific [place] 1.026 Urine Protein 100 H Urine Glucose (UA) >=500 H Urine Ketones 80 H Urine Blood MODERATE H Urine Nitrite NEGATIVE Urine Bilirubin NEGATIVE Urine Urobilinogen NEGATIVE Ur Leukocyte Esterase MODERATE H Urine WBC (Auto) 137 Urine RBC (Auto) 114 Urine Bacteria (Auto) TRACE Squamous Epi Cells Auto 2 Urine Mucus (Auto) RARE Urine Ascorbic Acid NEGATIVE Reviewed labs from patient's previous ER visit 07/13/16 11:41 Discharge - Discharge Clinical Impression: Nausea UTI (urinary tract infection) Qualifiers: Urinary tract infection type: acute cystitis Hematuria presence: with hematuria Qualified Code(s): N30.01 - Acute cystitis with hematuria Condition: Stable Disposition: HOME, SELF-CARE Instructions: Cephalexin ([facility]), Urinary Tract Infection ([facility]), Nausea or Vomiting, Nonspecific ([facility]), Rocephin ([facility]) Additional Instructions: Return immediately for any new or worsening symptoms Followup with your primary care provider, call tomorrow to make a followup appointment Cultures are pending, we will call you if you need any different treatment You do not need to take the Macrobid anymore. Instead take the new antibiotic that was prescribed today. Discuss with your primary doctor the side effects of your diabetic medications and how you're feeling with those. They may look at adjustments to your medications. Take your nausea medications that you were prescribed at last ER visit as directed. Prescriptions: Cephalexin Monohydrate [Keflex 500 mg Capsule] 500 mg PO BID 7 Days Forms: Return to Work Referrals: KEITH ZAMORA DO [Primary Care Provider] - Follow up tomorrow
[2016-07-13 09:31] LABS: ABSOLUTE LYMPHOCYTES (AUTO) 1.2 10^3/uL (0.5-4.7); ABSOLUTE MONOCYTES (AUTO) 0.5 10^3/uL (0.1-1.4); ABSOLUTE NEUT (AUTO) 3.5 10^3/uL (1.7-8.2); BASOPHILS % (AUTO) 0.4 % (0-2); HEMATOCRIT 40.7 % (36.0-47.0); HEMOGLOBIN 13.2 g/dL (12.0-15.5); HGB HCT DIFFERENCE -1.1; LYMPHOCYTES % (AUTO) 22.4 % (13-45); MEAN CORPUSCULAR HEMOGLOBIN 27.5 pg (27.0-33.4); MEAN CORPUSCULAR HGB CONC 32.4 g/dL (32.0-36.0); MEAN CORPUSCULAR VOLUME 85 fl (80-97); MONOCYTES % (AUTO) 9.9 % (3-13); RED BLOOD COUNT 4.79 10^6/uL (3.72-5.28); RED CELL DISTRIBUTION WIDTH 13.8 % (11.5-14.0); SEGMENTED NEUTROPHILS % (AUTO) 67.3 % (42-78); WHITE BLOOD COUNT 5.2 10^3/uL (4.0-10.5)
[2016-07-13 09:40] LABS: APPEARANCE,URINE SLIGHTLY-CLOUDY; BILIRUBIN,URINE NEGATIVE (NEGATIVE); GLUCOSE, URINE >=500 mg/dL (NEGATIVE); KETONES,URINE 80 mg/dL (NEGATIVE); LEUKOCYTE ESTERASE,URINE MODERATE (NEGATIVE); NITRITE,URINE NEGATIVE (NEGATIVE); PROTEIN,URINE 100 mg/dL (NEGATIVE); URINE SPECIFIC GRAVITY 1.026; UROBILINOGEN,URINE NEGATIVE mg/dL (<2.0)
[2016-07-13 09:48] LABS: ALANINE AMINOTRANSFERASE 21 U/L (9-52); ALBUMIN 4.5 g/dL (3.5-5.0); ALKALINE PHOSPHATASE 63 U/L (38-126); ANION GAP 15 (5-19); ASPARTATE AMINO TRANSFERASE 14 U/L (14-36); BILIRUBIN,DIRECT 0.3 mg/dL (0.0-0.4); BILIRUBIN,TOTAL 1.1 mg/dL (0.2-1.3); BLOOD UREA NITROGEN 14 mg/dL (7-20); CALCIUM 9.9 mg/dL (8.4-10.2); CARBON DIOXIDE 26 mmol/L (22-30); CHLORIDE 100 mmol/L (98-107); CREATININE RESULT 0.58 mg/dL (0.52-1.25); GLUCOSE 122 mg/dL (75-110); POTASSIUM 3.9 mmol/L (3.6-5.0); SODIUM 141.2 mmol/L (137-145); TOTAL PROTEIN 7.7 g/dL (6.3-8.2)
[2016-07-13] MEDS ORDERED: CEFTRIAXONE RTU 1 GM/D5W 50 ML IV ONE (10:17)
[2016-07-13 11:37] VITALS: BP 143/95
== END 2016-07-13 11:43 | disposition home or self-care (01) ==
LOC: ER 06:55
DX: N30.01 Acute cystitis with hematuria (principal); R63.0 Anorexia; R11.0 Nausea; E11.9 Type 2 diabetes mellitus without complications; Z79.84 Long term (current) use of oral hypoglycemic drugs; Z88.2 Allergy status to sulfonamides; Z88.1 Allergy status to other antibiotic agents
CPT/HCPCS: 99283; 96361; 96375; 96365; 36415; 87040; 87086; 82962; 83605; 85025; 80053; 81001; J2405; J7030; J0696

== ENCOUNTER 2016-08-27 08:50 | Emergency (ER) | payer BC ==
[2016-08-27 09:33] LABS: ABSOLUTE LYMPHOCYTES (AUTO) 0.6 10^3/uL (0.5-4.7); ABSOLUTE MONOCYTES (AUTO) 0.1 10^3/uL (0.1-1.4); ABSOLUTE NEUT (AUTO) 4.7 10^3/uL (1.7-8.2); BASOPHILS % (AUTO) 0.5 % (0-2); HEMATOCRIT 38.6 % (36.0-47.0); HEMOGLOBIN 12.6 g/dL (12.0-15.5); HGB HCT DIFFERENCE -0.8; LYMPHOCYTES % (AUTO) 10.2 % (13-45); MEAN CORPUSCULAR HEMOGLOBIN 27.2 pg (27.0-33.4); MEAN CORPUSCULAR HGB CONC 32.5 g/dL (32.0-36.0); MEAN CORPUSCULAR VOLUME 84 fl (80-97); MONOCYTES % (AUTO) 2.3 % (3-13); RED BLOOD COUNT 4.62 10^6/uL (3.72-5.28); RED CELL DISTRIBUTION WIDTH 14.8 % (11.5-14.0); WHITE BLOOD COUNT 5.4 10^3/uL (4.0-10.5)
--- NOTE | 2016-08-27 09:37 | ER Document Report ---
ED GI/ - General Chief Complaint: Abdominal Pain Stated Complaint: VOMITING,ABDOMINAL PAIN Time Seen by Provider: 08/27/16 09:33 Mode of Arrival: Ambulatory Information source: Patient Notes: 45-year-old type II diabetic female with episodic epigastric pain that is associated with nausea and vomiting for one year. Each time she is seen it is due to another cause. Today she has vomited 10-12 times since last night. No diarrhea. She thinks she is dehydrated. No pain at this time. Denies alcohol. History of 3 C-sections and tubal ligation. No diarrhea or constipation. TRAVEL OUTSIDE OF THE [place] IN LAST 30 DAYS: No - Related Data Allergies/Adverse Reactions: Sulfa (Sulfonamide Antibiotics) Allergy (Verified 07/11/16 11:54) sulfamethoxazole [From Septra] Allergy (Verified 07/11/16 11:54) trimethoprim [From Septra] Allergy (Verified 07/11/16 11:54) nitrofurantoin [From Macrobid] Adverse Reaction (Verified 08/27/16 08:57) Home Medications: Current Home Medications Dapagliflozin Propanediol [Farxiga] 1 tab PO DAILY 08/27/16 [History] Past Medical History - General Information source: Patient - Social History Smoking Status: Never Smoker Frequency of alcohol use: None Drug Abuse: None Lives with: Family Family History: None Patient has suicidal ideation: No Patient has homicidal ideation: No Endocrine Medical History: Reports: Hx Diabetes Mellitus Type 2 Renal/ Medical History: Denies: Hx Peritoneal Dialysis GI Medical History: Reports: Hx Ulcer Past Surgical History: Reports: Hx Section, Hx Tubal Ligation - Immunizations Hx Diphtheria, Pertussis, Tetanus Vaccination: No Review of Systems - Review of Systems Constitutional: No symptoms reported EENT: No symptoms reported Cardiovascular: No symptoms reported Respiratory: No symptoms reported Gastrointestinal: See HPI Genitourinary: No symptoms reported Female Genitourinary: No symptoms reported Musculoskeletal: No symptoms reported Skin: No symptoms reported Hematologic/Lymphatic: No symptoms reported Neurological/Psychological: No symptoms reported Physical Exam - Vital signs Vitals: Temp Pulse Resp BP Pulse Ox 98.3 F 113 H 14 150/91 H 97 08/27/16 08:53 08/27/16 08:53 08/27/16 08:53 08/27/16 08:53 08/27/16 08:53 Interpretation: Normal - General General appearance: Appears well, Alert - HEENT Head: Normocephalic, Atraumatic Eyes: Normal Conjunctiva: Normal Pupils: PERRL Mucous membranes: Normal Pharynx: Normal Neck: Supple. No: Lymphadenopathy - Respiratory Respiratory status: No respiratory distress Chest status: Nontender Breath sounds: Normal Chest palpation: Normal - Cardiovascular Rhythm: Regular Heart sounds: Normal auscultation Murmur: No - Abdominal Inspection: Normal Distension: No distension Bowel sounds: Normal Tenderness: Nontender. No: Tender Organomegaly: No organomegaly - Back Back: Normal, Nontender. No: CVA tenderness - Extremities General upper extremity: Normal inspection, Nontender, Normal color, Normal ROM , Normal temperature General lower extremity: Normal inspection, Nontender, Normal color, Normal ROM , Normal temperature, Normal weight bearing. No: Katty's sign - Neurological Neuro grossly intact: Yes Cognition: Normal Orientation: AAOx4 Max Coma Scale Eye Opening: Spontaneous [place] Coma Scale Verbal: Oriented [place] Coma Scale Motor: Obeys Commands [place] Coma Scale Total: 15 Speech: Normal Motor strength normal: LUE, RUE, LLE, RLE Sensory: Normal - Psychological Associated symptoms: Normal affect, Normal mood - Skin Skin Temperature: Warm Skin Moisture: Dry Skin Color: Normal Skin irregularity: negative: Rash Course - Re-evaluation Re-evalutation: 08/27/16 12:21 Patient has some reflux burning sensation and wants a GI cocktail. She is supposed to take Prilosec which I recommended that she take. The lab work is negative. She is able to keep some terrell abram and crackers down 08/27/16 12:21 - Vital Signs Vital signs: Temp Pulse Resp BP Pulse Ox 98.3 F 113 H 18 150/91 H 97 08/27/16 08:53 08/27/16 08:53 08/27/16 09:30 08/27/16 08:53 08/27/16 08:53 - Laboratory Result Diagrams: 08/27/16 09:10 08/27/16 09:10 Laboratory results interpreted by me: 08/27/16 08/27/16 08/27/16 09:10 09:10 09:10 RDW 14.8 H Seg Neutrophils % 87.0 H Lymphocytes % 10.2 L Monocytes % 2.3 L Glucose 144 H Calcium 10.3 H Direct Bilirubin 0.6 H Total Protein 8.9 H Albumin 5.1 H Urine Protein 30 H Urine Glucose (UA) >=500 H Urine Ketones 80 H Discharge - Discharge Clinical Impression: epigastric abdominal pain resolved, vomiting, dehydration Condition: Good Disposition: HOME, SELF-CARE Instructions: Abdominal Pain ([facility]), Nausea or Vomiting, Nonspecific ([facility]) Additional Instructions: Take the Prilosec Return to the emergency room any concerns Please complete the patient satisfaction survey if you get one, and return it.. If you do not receive a survey, then you can go to the [facility] website, [email or web address] and place your comments about your very good care. Thank you very much. It was a pleasure being your medical provider today. Forms: Return to Work Referrals: KEITH ZAMORA, [Primary Care Provider] - Follow up as needed
[2016-08-27 09:47] LABS: APPEARANCE,URINE CLEAR; BILIRUBIN,URINE NEGATIVE (NEGATIVE); GLUCOSE, URINE >=500 mg/dL (NEGATIVE); KETONES,URINE 80 mg/dL (NEGATIVE); LEUKOCYTE ESTERASE,URINE NEGATIVE (NEGATIVE); NITRITE,URINE NEGATIVE (NEGATIVE); PROTEIN,URINE 30 mg/dL (NEGATIVE); URINE SPECIFIC GRAVITY 1.028; UROBILINOGEN,URINE NEGATIVE mg/dL (<2.0)
[2016-08-27 10:03] LABS: ALANINE AMINOTRANSFERASE 21 U/L (9-52); ALBUMIN 5.1 g/dL (3.5-5.0); ALKALINE PHOSPHATASE 67 U/L (38-126); ASPARTATE AMINO TRANSFERASE 18 U/L (14-36); BILIRUBIN,DIRECT 0.6 mg/dL (0.0-0.4); BILIRUBIN,TOTAL 1.3 mg/dL (0.2-1.3); BLOOD UREA NITROGEN 13 mg/dL (7-20); CALCIUM 10.3 mg/dL (8.4-10.2); CARBON DIOXIDE 23 mmol/L (22-30); CREATININE RESULT 0.64 mg/dL (0.52-1.25); GLUCOSE 144 mg/dL (75-110); LIPASE 35.3 U/L (23-300); TOTAL PROTEIN 8.9 g/dL (6.3-8.2)
[2016-08-27] MEDS ORDERED: NORMAL SALINE 1000 ML 2,000 ML IV ONE (10:09)
[2016-08-27 10:13] LABS: ANION GAP 18 (5-19); CHLORIDE 99 mmol/L (98-107); SODIUM 140.4 mmol/L (137-145)
[2016-08-27] MEDS ORDERED: ONDANSETRON HCL INJ/PF 4 MG/2 ML SDV IV ONE (11:11)
[2016-08-27] MEDS ORDERED: MAG HYDROX/AL HYDROX/SIMETH SUSP 30 ML UDCUP PO ONE (12:20)
[2016-08-27] MEDS ORDERED: LIDOCAINE 2% VISCOUS SOLN 20 ML UDCUP PO ONE (12:20)
[2016-08-27 12:30] VITALS: BP 152/96
[2016-08-27] MEDS ORDERED: ONDANSETRON 4 MG TAB.RAPDIS PO ONE (12:38)
== END 2016-08-27 12:50 | disposition home or self-care (01) ==
LOC: ER 08:50
DX: R10.13 Epigastric pain (principal); R11.2 Nausea with vomiting, unspecified; E86.0 Dehydration; E11.9 Type 2 diabetes mellitus without complications; Z98.51 Tubal ligation status; Z88.2 Allergy status to sulfonamides; Z88.1 Allergy status to other antibiotic agents
CPT/HCPCS: 99284; 96361; 96374; 36415; 87086; 83690; 84703; 85025; 80053; 81001; S0119; J3490; J2405; J7030

== ENCOUNTER 2016-08-28 03:08 | Emergency (ER) | payer BC ==
[2016-08-28] MEDS ORDERED: METOCLOPRAMIDE HCL INJ/PF 10 MG/2 ML SDV IV ONE (05:06)
--- NOTE | 2016-08-28 05:08 | ER Document Report ---
Doctor's Note Notes: 08/28/16 05:07 I performed a quick triage evaluation the patient. Patient is a 45-year-old female who presents with complaint of vomiting and left upper quadrant abdominal pain. She's had similar symptoms in the past. She seen here yesterday for same symptoms. At that time she was discharged home on Prilosec. She has Zofran and Phenergan at home. She says is not working she continues to vomit. She has emesis bag with yellow appearing stomach acid in it. No blood. No diarrhea. No fevers. She has been told the past that her symptoms may be related to gastroparesis. She's also been told at times that her first vomiting was related to UTIs. On exam patient is dehydrated appearing. Her last semester showed that she had 80 ketones in her urine. She has minimal pain to palpation of her abdomen. Abdomen is soft. It's not surgical.. I will start her on IV fluids. I will order repeat labs. I will give her Reglan to see if this helps. I suspect she may have some component of gastroparesis from her diabetes. Dictation of this chart was performed using voice recognition software; therefore, there may be some unintended grammatical errors.
[2016-08-28] MEDS: NORMAL SALINE 1000 ML 1,000 ML IV PRN ×2 (05:33→05:34)
[2016-08-28 05:46] LABS: APPEARANCE,URINE SLIGHTLY-CLOUDY; BILIRUBIN,URINE NEGATIVE (NEGATIVE); GLUCOSE, URINE >=500 mg/dL (NEGATIVE); KETONES,URINE 80 mg/dL (NEGATIVE); LEUKOCYTE ESTERASE,URINE NEGATIVE (NEGATIVE); NITRITE,URINE NEGATIVE (NEGATIVE); PROTEIN,URINE 30 mg/dL (NEGATIVE); URINE SPECIFIC GRAVITY 1.031; UROBILINOGEN,URINE NEGATIVE mg/dL (<2.0)
[2016-08-28 06:07] LABS: ABSOLUTE LYMPHOCYTES (AUTO) 0.7 10^3/uL (0.5-4.7); ABSOLUTE MONOCYTES (AUTO) 0.4 10^3/uL (0.1-1.4); ABSOLUTE NEUT (AUTO) 4.3 10^3/uL (1.7-8.2); BASOPHILS % (AUTO) 0.5 % (0-2); HEMATOCRIT 33.9 % (36.0-47.0); HGB HCT DIFFERENCE -0.9; MEAN CORPUSCULAR HEMOGLOBIN 27.6 pg (27.0-33.4); MEAN CORPUSCULAR HGB CONC 32.4 g/dL (32.0-36.0); MEAN CORPUSCULAR VOLUME 85 fl (80-97); MONOCYTES % (AUTO) 7.5 % (3-13); RED BLOOD COUNT 3.97 10^6/uL (3.72-5.28); RED CELL DISTRIBUTION WIDTH 15.3 % (11.5-14.0); WHITE BLOOD COUNT 5.5 10^3/uL (4.0-10.5)
--- NOTE | 2016-08-28 06:45 | ER Document Report ---
ED General - General Chief Complaint: Nausea/Vomiting Stated Complaint: VOMITING Time Seen by Provider: 08/28/16 05:53 Mode of Arrival: Ambulatory Information source: Patient Notes: This is a 45-year-old female with a history of type II diabetes and hypertension who presents to the emergency room with nausea and vomiting. Patient gives a history of frequent episodes of nausea and vomiting. She denies any fever, chills, abdominal pain or vaginal discharge. She states she is otherwise been okay. TRAVEL OUTSIDE OF THE [place] IN LAST 30 DAYS: No - HPI Onset: Last week Onset/Duration: Gradual Quality of pain: No pain Severity: None Pain Level: Denies Associated symptoms: Nausea, Vomiting. denies: Chest pain, Chills, Diarrhea, Fever Exacerbated by: Denies Relieved by: Denies Similar symptoms previously: Yes Recently seen / treated by doctor: Yes - Related Data Allergies/Adverse Reactions: Sulfa (Sulfonamide Antibiotics) Allergy (Verified 07/11/16 11:54) sulfamethoxazole [From Septra] Allergy (Verified 07/11/16 11:54) trimethoprim [From Septra] Allergy (Verified 07/11/16 11:54) nitrofurantoin [From Macrobid] Adverse Reaction (Verified 08/27/16 08:57) Past Medical History - General Information source: Patient - Social History Smoking Status: Never Smoker Cigarette use (# per day): No Chew tobacco use (# tins/day): No Frequency of alcohol use: None Drug Abuse: None Lives with: Family Family History: None Patient has suicidal ideation: No Patient has homicidal ideation: No - Past Medical History Cardiac Medical History: Reports: Hx Hypertension Pulmonary Medical History: Reports: None Endocrine Medical History: Reports: Hx Diabetes Mellitus Type 2 Renal/ Medical History: Reports: None Malignancy Medical History: Reports: None GI Medical History: Reports: Hx Ulcer Musculoskeltal Medical History: Reports None Skin Medical History: Reports None Psychiatric Medical History: Reports: None Traumatic Medical History: Reports: None Infectious Medical History: Reports: None Past Surgical History: Reports: Hx Section, Hx Tubal Ligation - Immunizations Hx Diphtheria, Pertussis, Tetanus Vaccination: No Review of Systems - Review of Systems Constitutional: denies: Chills, Fever EENT: No symptoms reported Cardiovascular: No symptoms reported Respiratory: No symptoms reported Gastrointestinal: See HPI Genitourinary: No symptoms reported Female Genitourinary: No symptoms reported Musculoskeletal: No symptoms reported Skin: No symptoms reported Hematologic/Lymphatic: No symptoms reported Neurological/Psychological: No symptoms reported Physical Exam - Vital signs Vitals: Temp Pulse Resp BP Pulse Ox 98.4 F 89 18 152/88 H 98 08/28/16 03:23 08/28/16 03:23 08/28/16 03:23 08/28/16 03:23 08/28/16 03:23 Notes: Physical exam: GENERAL: HEAD: Atraumatic, normocephalic. EYES: Pupils equal round and reactive to light, extraocular movements intact, sclera anicteric, conjunctiva are normal. ENT: TMs normal, nares patent, oropharynx clear without exudates. Moist mucous membranes. NECK: Normal range of motion, supple without lymphadenopathy or JVD. LUNGS: Breath sounds clear to auscultation bilaterally and equal. No wheezes rales or rhonchi. HEART: Regular rate and rhythm without murmurs, rubs or gallops. ABDOMEN: Soft, normoactive bowel sounds. No tenderness to palpation. No guarding, no rebound. No masses appreciated. EXTREMITIES: Normal range of motion, no pitting or edema. No clubbing or cyanosis. NEUROLOGICAL: Cranial nerves II through XII grossly intact. Normal speech, normal gait. PSYCH: Normal mood, normal affect. SKIN: Warm, Dry, normal turgor, no rashes or lesions noted. Course - Vital Signs Vital signs: Temp Pulse Resp BP Pulse Ox 98.4 F 89 18 152/88 H 98 08/28/16 03:23 08/28/16 03:23 08/28/16 03:23 08/28/16 03:23 08/28/16 03:23 - Laboratory Result Diagrams: 08/28/16 05:58 08/28/16 05:15 Laboratory results interpreted by me: 08/28/16 08/28/16 08/28/16 05:15 05:15 05:58 Hgb 11.0 L Hct 33.9 L RDW 15.3 H Seg Neutrophils % 79.0 H Glucose 121 H Calcium 10.3 H Total Bilirubin 1.5 H Direct Bilirubin 0.7 H Total Protein 8.5 H Urine Protein 30 H Urine Glucose (UA) >=500 H Urine Ketones 80 H Discharge - Discharge Clinical Impression: gastroparesis Condition: Stable Disposition: HOME, SELF-CARE Instructions: Nausea or Vomiting, Nonspecific ([facility]) Additional Instructions: Recommendations: Rest, drink plenty of fluids: Drink small amounts of fluids frequently. Advance diet slowly. Take Reglan for nausea. If you're feeling jittery, he can take Benadryl with the Reglan. Continue all other medicines. Follow-up with Dr. Monsivais: Bring a copy of today's labs with you when you go. Return to the emergency room for abdominal pain, worsening nausea or vomiting. Prescriptions: Metoclopramide HCl [Reglan 10 mg Tablet] 1 - 2 tab PO ASDIR PRN #25 tablet PRN Reason: Forms: Return to Work
[2016-08-28 07:09] LABS: ALANINE AMINOTRANSFERASE 24 U/L (9-52); ALBUMIN 4.6 g/dL (3.5-5.0); ALKALINE PHOSPHATASE 63 U/L (38-126); ANION GAP 17 (5-19); ASPARTATE AMINO TRANSFERASE 16 U/L (14-36); BILIRUBIN,DIRECT 0.7 mg/dL (0.0-0.4); BILIRUBIN,TOTAL 1.5 mg/dL (0.2-1.3); BLOOD UREA NITROGEN 16 mg/dL (7-20); CALCIUM 10.3 mg/dL (8.4-10.2); CARBON DIOXIDE 24 mmol/L (22-30); CHLORIDE 100 mmol/L (98-107); CREATININE RESULT 0.61 mg/dL (0.52-1.25); GLUCOSE 121 mg/dL (75-110); LIPASE 56.3 U/L (23-300); SODIUM 141.3 mmol/L (137-145); TOTAL PROTEIN 8.5 g/dL (6.3-8.2)
[2016-08-28 07:38] VITALS: BP 151/93
== END 2016-08-28 07:35 | disposition home or self-care (01) ==
LOC: ER 03:08
DX: E11.43 Type 2 diabetes mellitus with diabetic autonomic (poly)neuropathy (principal); K31.84 Gastroparesis; R11.2 Nausea with vomiting, unspecified; I10 Essential (primary) hypertension; Z88.2 Allergy status to sulfonamides; Z88.3 Allergy status to other anti-infective agents
CPT/HCPCS: 99284; 96361; 96374; 36415; 87086; 83690; 85025; 80053; 81001; J2765; J7030

== ENCOUNTER 2016-12-09 16:48 | Emergency (ER) | payer SELFPAY ==
[2016-12-09] MEDS ORDERED: NORMAL SALINE 1000 ML 1,000 ML IV PRN (17:26)
[2016-12-09] MEDS ORDERED: ONDANSETRON HCL INJ/PF 4 MG/2 ML SDV IV ONE (17:26)
--- NOTE | 2016-12-09 17:29 | ER Document Report ---
ED Medical Screen (RME) - General Chief Complaint: Nausea/Vomiting Stated Complaint: VOMITING,NAUSEA,DIZZINESS Time Seen by Provider: 12/09/16 17:26 Notes: Patient reports stating that she feels very weak and nauseous. She states she is very fatigued and has no energy and feels dehydrated. This been going on since yesterday. She also states that she is currently on her menstrual cycle. She states she has had anemia since she was a child. She denies any pain. TRAVEL OUTSIDE OF THE [place] IN LAST 30 DAYS: No - Related Data Allergies/Adverse Reactions: Sulfa (Sulfonamide Antibiotics) Allergy (Verified 12/09/16 17:04) sulfamethoxazole [From Septra] Allergy (Verified 12/09/16 17:04) trimethoprim [From Septra] Allergy (Verified 12/09/16 17:04) nitrofurantoin [From Macrobid] Adverse Reaction (Verified 12/09/16 17:04) Past Medical History - Past Medical History Cardiac Medical History: Reports: Hx Hypertension Endocrine Medical History: Reports: Hx Diabetes Mellitus Type 2 Renal/ Medical History: Denies: Hx Peritoneal Dialysis GI Medical History: Reports: Hx Ulcer Past Surgical History: Reports: Hx Section, Hx Tubal Ligation - Immunizations Hx Diphtheria, Pertussis, Tetanus Vaccination: No Physical Exam - Vital signs Vitals: Temp Pulse Resp BP Pulse Ox 98.4 F 95 16 143/86 H 97 12/09/16 17:04 12/09/16 17:04 12/09/16 17:04 12/09/16 17:04 12/09/16 17:04 Course - Vital Signs Vital signs: Temp Pulse Resp BP Pulse Ox 98.4 F 95 16 143/86 H 97 12/09/16 17:04 12/09/16 17:04 12/09/16 17:04 12/09/16 17:04 12/09/16 17:04
[2016-12-09 17:53] LABS: ABSOLUTE LYMPHOCYTES (AUTO) 0.6 10^3/uL (0.5-4.7); ABSOLUTE MONOCYTES (AUTO) 0.2 10^3/uL (0.1-1.4); ABSOLUTE NEUT (AUTO) 3.5 10^3/uL (1.7-8.2); BASOPHILS % (AUTO) 0.2 % (0-2); HEMATOCRIT 34.3 % (36.0-47.0); HEMOGLOBIN 11.1 g/dL (12.0-15.5); MEAN CORPUSCULAR HEMOGLOBIN 26.3 pg (27.0-33.4); MEAN CORPUSCULAR HGB CONC 32.3 g/dL (32.0-36.0); MEAN CORPUSCULAR VOLUME 82 fl (80-97); MONOCYTES % (AUTO) 4.2 % (3-13); RED BLOOD COUNT 4.21 10^6/uL (3.72-5.28); RED CELL DISTRIBUTION WIDTH 15.5 % (11.5-14.0); SEGMENTED NEUTROPHILS % (AUTO) 81.6 % (42-78); WHITE BLOOD COUNT 4.3 10^3/uL (4.0-10.5)
[2016-12-09 18:11] LABS: ALANINE AMINOTRANSFERASE 26 U/L (9-52); ALKALINE PHOSPHATASE 61 U/L (38-126); ANION GAP 19 (5-19); ASPARTATE AMINO TRANSFERASE 15 U/L (14-36); BILIRUBIN,DIRECT 0.5 mg/dL (0.0-0.4); BILIRUBIN,TOTAL 0.9 mg/dL (0.2-1.3); BLOOD UREA NITROGEN 15 mg/dL (7-20); CALCIUM 10.5 mg/dL (8.4-10.2); CARBON DIOXIDE 21 mmol/L (22-30); CHLORIDE 101 mmol/L (98-107); CREATININE RESULT 0.66 mg/dL (0.52-1.25); GLUCOSE 163 mg/dL (75-110); POTASSIUM 4.3 mmol/L (3.6-5.0); SODIUM 140.6 mmol/L (137-145); TOTAL PROTEIN 8.2 g/dL (6.3-8.2)
[2016-12-09] MEDS ORDERED: PROMETHAZINE HCL 25 MG TABLET PO ONE (19:29)
[2016-12-09] MEDS ORDERED: FAMOTIDINE 20 MG TABLET PO ONE (19:29)
[2016-12-09] MEDS ORDERED: SUCRALFATE 1 GM TABLET PO ONE (19:29)
[2016-12-09] MEDS ORDERED: NORMAL SALINE 1000 ML 1,000 ML IV ONE (19:30)
--- NOTE | 2016-12-09 19:31 | ER Document Report ---
ED GI/ - General Chief Complaint: Nausea/Vomiting Stated Complaint: VOMITING,NAUSEA,DIZZINESS Time Seen by Provider: 12/09/16 17:26 Notes: Patient is a 45-year-old female who comes emergency department for chief complaint of general upper abdominal pain and vomiting that started yesterday. She has vomited 12 times since yesterday, nonbloody, denies diarrhea, denies fever but reports some chills. She denies flank pain, dysuria, vaginal discharge or bleeding. She denies alcohol use. She states that since she was diagnosed with type 2 diabetes she gets this every few months. She has not had an endoscopy. Which really a good she has had C-sections and a tubal ligation, also has hypertension. TRAVEL OUTSIDE OF THE [place] IN LAST 30 DAYS: No - Related Data Allergies/Adverse Reactions: Sulfa (Sulfonamide Antibiotics) Allergy (Verified 12/09/16 17:04) sulfamethoxazole [From Septra] Allergy (Verified 12/09/16 17:04) trimethoprim [From Septra] Allergy (Verified 12/09/16 17:04) nitrofurantoin [From Macrobid] Adverse Reaction (Verified 12/09/16 17:04) Past Medical History - General Information source: Patient - Social History Smoking Status: Never Smoker Frequency of alcohol use: None Drug Abuse: None Lives with: Family Family History: None Patient has suicidal ideation: No Patient has homicidal ideation: No - Past Medical History Cardiac Medical History: Reports: Hx Hypertension Endocrine Medical History: Reports: Hx Diabetes Mellitus Type 2 Renal/ Medical History: Denies: Hx Peritoneal Dialysis GI Medical History: Reports: Hx Ulcer Past Surgical History: Reports: Hx Section, Hx Tubal Ligation - Immunizations Hx Diphtheria, Pertussis, Tetanus Vaccination: No Review of Systems - Review of Systems Constitutional: No symptoms reported EENT: No symptoms reported Cardiovascular: No symptoms reported Respiratory: No symptoms reported Gastrointestinal: See HPI Genitourinary: No symptoms reported Female Genitourinary: No symptoms reported Musculoskeletal: No symptoms reported Skin: No symptoms reported Hematologic/Lymphatic: No symptoms reported Neurological/Psychological: No symptoms reported Physical Exam - Vital signs Vitals: Temp Pulse Resp BP Pulse Ox 98.4 F 95 16 143/86 H 97 12/09/16 17:04 12/09/16 17:04 12/09/16 17:04 12/09/16 17:04 12/09/16 17:04 Interpretation: Normal - General General appearance: Appears well, Alert In distress: None - HEENT Head: Normocephalic, Atraumatic Eyes: Normal Pupils: PERRL Mouth/Lips: Normal Mucous membranes: Dry Pharynx: Normal Neck: Normal - Respiratory Respiratory status: No respiratory distress Chest status: Nontender Breath sounds: Normal Chest palpation: Normal - Cardiovascular Rhythm: Regular Heart sounds: Normal auscultation Murmur: No - Abdominal Inspection: Normal Distension: No distension Bowel sounds: Normal Tenderness: Tender - Very mild and generalized abdominal tenderness, nonspecific , no guarding, no rigidity Organomegaly: No organomegaly - Back Back: Normal, Nontender - Extremities General upper extremity: Normal inspection, Nontender, Normal color, Normal ROM , Normal temperature General lower extremity: Normal inspection, Nontender, Normal color, Normal ROM , Normal temperature, Normal weight bearing. No: Katty's sign - Neurological Neuro grossly intact: Yes Cognition: Normal Orientation: AAOx4 [place] Coma Scale Eye Opening: Spontaneous [place] Coma Scale Verbal: Oriented [place] Coma Scale Motor: Obeys Commands Max Coma Scale Total: 15 Speech: Normal Motor strength normal: LUE, RUE, LLE, RLE Sensory: Normal - Psychological Associated symptoms: Normal affect, Normal mood - Skin Skin Temperature: Warm Skin Moisture: Dry Skin Color: Normal Course - Re-evaluation Re-evalutation: CBC unremarkable, chemistry shows borderline bicarbonate and very mild hyperglycemia. Urine indicates significant dehydration. Patient given 2 L of IV fluids. Patient given nausea medication, given medication by mouth for suspected gastritis component. Abdomen is actually very soft and unremarkable. Patient is actually very well-appearing. After oral medications, rehydration, patient states she actually feels much better, asking for terrell abram. After this she is asking to leave. Providing with symptom management and treatment for suspected gastrointestinal source of symptoms, discussed follow-up workup, discussed return precautions, patient states understanding and agreement. - Vital Signs Vital signs: Temp Pulse Resp BP Pulse Ox 98.0 F 87 18 137/79 H 99 12/09/16 21:45 12/09/16 21:45 12/09/16 21:45 12/09/16 21:45 12/09/16 21:45 - Laboratory Result Diagrams: 12/09/16 17:40 12/09/16 17:40 Laboratory results interpreted by me: 12/09/16 12/09/16 12/09/16 17:40 17:40 19:53 Hgb 11.1 L Hct 34.3 L MCH 26.3 L RDW 15.5 H Plt Count 473 H Seg Neutrophils % 81.6 H Carbon Dioxide 21 L Glucose 163 H Calcium 10.5 H Direct Bilirubin 0.5 H Urine Protein 100 H Urine Glucose (UA) >=500 H Urine Ketones 80 H Urine Blood LARGE H Discharge - Discharge Clinical Impression: Dehydration Nausea and vomiting Qualifiers: Vomiting type: unspecified Vomiting Intractability: non-intractable Qualified Code(s): R11.2 - Nausea with vomiting, unspecified Condition: Stable Disposition: HOME, SELF-CARE Additional Instructions: Your workup indicates dehydration but no other concerning abnormalities. Take the Phenergan for nausea, take the Carafate and omeprazole as prescribed. Recommend following up with both primary care and with the gastroenterology referral for additional management. Return to emergency department if you worsen including uncontrolled vomiting, fever, developing abdominal pain, or any other concerning symptoms. Prescriptions: Omeprazole 40 mg PO DAILY #30 capsule. Promethazine HCl [Phenergan 25 mg Tablet] 1 - 2 tab PO Q6H PRN #20 tablet PRN Reason: Sucralfate [Carafate 1 gm Tablet] 1 gm PO QID #20 tablet Forms: Return to Work Referrals: BRIANNE CORONA MD [ACTIVE STAFF] - Follow up as needed
[2016-12-09 20:56] LABS: APPEARANCE,URINE SLIGHTLY-CLOUDY; BILIRUBIN,URINE NEGATIVE (NEGATIVE); GLUCOSE, URINE >=500 mg/dL (NEGATIVE); KETONES,URINE 80 mg/dL (NEGATIVE); LEUKOCYTE ESTERASE,URINE NEGATIVE (NEGATIVE); NITRITE,URINE NEGATIVE (NEGATIVE); PROTEIN,URINE 100 mg/dL (NEGATIVE); UROBILINOGEN,URINE NEGATIVE mg/dL (<2.0)
[2016-12-09 22:08] VITALS: BP 137/79
== END 2016-12-09 21:45 | disposition home or self-care (01) ==
LOC: ER 16:48
DX: E86.0 Dehydration (principal); R11.2 Nausea with vomiting, unspecified; E11.9 Type 2 diabetes mellitus without complications; I10 Essential (primary) hypertension
CPT/HCPCS: 99284; 96361; 96374; 36415; 85025; 81025; 80053; 81001; J2405; J7030